=== PATIENT | female | born 1965 | race Caucasian/White ===

== ENCOUNTER → 2017-02-28 | Outpatient (CLI) | payer BC ==
[~2017-02-28] MED LIST: GLUCOPHAGE1000 MG PO; LIPITOR 10MG10 MG PO; MOTRIN 800800 MG/TAB PO; NORCO 325 MG-7.1 TAB PO; PRINZIDE 12.5 M1 TAB PO
== END ==
LOC: MC.RAD 14:00
DX: Z12.31 Encounter for screening mammogram for malignant neoplasm of breast (principal)

== ENCOUNTER 2018-08-25 02:50 | Emergency (ER) | payer BC ==
[~2018-08-25] VITALS: Ht 157.5 cm; Wt 102.3 kg
[2018-08-25 03:05] VITALS: TEMP 98
[2018-08-25] MEDS ORDERED: NEURONTIN300 MG/CAP PO (03:22)
[2018-08-25] MEDS ORDERED: FLEXERIL 1010 MG/TAB PO (03:22)
[2018-08-25 04:38] VITALS: BP 153/85; PULSE 83
== END 2018-08-25 04:38 | disposition home or self-care (01) ==
LOC: COL.ER 02:50
DX: M79.672 Pain in left foot (principal); E11.9 Type 2 diabetes mellitus without complications; Z98.890 Other specified postprocedural states; Z79.84 Long term (current) use of oral hypoglycemic drugs

== ENCOUNTER 2018-08-29 14:43 | Emergency (ER) | payer BC ==
[~2018-08-29] VITALS: Ht 157.5 cm; Wt 102.3 kg
[~2018-08-29 14:43] MED LIST changes: +FLEXERIL 1010 MG/TAB PO; +NEURONTIN300 MG/CAP PO
[2018-08-29 14:49] VITALS: BP 158/90; PULSE 94; TEMP 97
[2018-08-29] MEDS ORDERED: ULTRAM 50MG TAB50 MG PO (15:34)
== END 2018-08-29 16:02 | disposition home or self-care (01) ==
LOC: COL.ER 14:43
DX: G89.29 Other chronic pain (principal); M54.5 Low back pain; E11.9 Type 2 diabetes mellitus without complications; I10 Essential (primary) hypertension; Z90.710 Acquired absence of both cervix and uterus; Z79.84 Long term (current) use of oral hypoglycemic drugs

== ENCOUNTER → 2018-09-27 | Outpatient (CLI) | payer BC ==
[~2018-09-27] MED LIST changes: +ULTRAM 50MG TAB50 MG PO
== END ==
LOC: MC.RAD 14:23
DX: Z12.31 Encounter for screening mammogram for malignant neoplasm of breast (principal)